=== PATIENT | male | born 1965 | race Caucasian/White ===

== ENCOUNTER → 2018-03-26 15:33 | Outpatient (CLI) | payer OTHER, SELFPAY ==
--- NOTE | 2018-03-26 | DI.MRI.S_ITS ---
PROCEDURE: MR LUMBAR SPINE WO CON INDICATIONS: SCIATICA TECHNIQUE: Noncontrast sagittal T1 spin echo and T2 fast echo, sagittal STIR, axial T1 and T2 fast spin echo through the lumbar spine. In cases with scoliosis, additional coronal T2 fast spin echo may be performed. COMPARISON: [facility], MR, L-SPINE W&WO CONTRAST, 09/16/2016, 7:51. [facility], MR, L-SPINE W&WO CONTRAST, 08/30/2014, 14:00. [facility], MR, L-SPINE WITHOUT CONTRAST, 07/26/2011, 16:09. FINDINGS: Image quality: Excellent. Alignment and Curvature: There is normal bony alignment. Bone Marrow: Marrow is of normal overall signal. No acute vertebral body compression fractures. Spinal Cord: Conus medullaris terminates at the L1 level. Visualized cord demonstrates normal signal and size. Paraspinous Soft Tissues: No paravertebral masses. T12-L1: The disc height is well-preserved. Loss of disc signal is seen at this level. A faintly seen annular fissure is present posteriorly, as on series 4 image 8. No significant disc bulge is seen. No significant neural foraminal or central canal narrowing are seen. L1-L2: Normal appearance. L2-L3: The disc height and disk signal are well-preserved. Mild to moderate disc bulge is seen. Mild to moderate facet hypertrophy is seen. There is mild bilateral neural foraminal narrowing seen. Minimal central canal narrowing is seen. These imaging findings are mildly progressed compared to the prior study. L3-L4: The disc height is well-preserved. Loss of disc signal is seen at this level. Moderate generalized disc bulge is seen. Mild facet joint hypertrophy is seen. There is mild right-sided and mild to moderate left-sided neural foraminal narrowing seen. Mild to moderate central canal narrowing is seen. These degenerative findings are mildly progressed compared to the prior. L4-L5: Moderate loss of disc height is seen. Loss of disc signal is seen. Moderate generalized disc bulge is seen. Moderate facet joint hypertrophy is seen. There is moderate left-sided and mild right-sided neural foraminal narrowing. Minimal central canal narrowing is seen. When comparison is made with the prior examination, these findings are similar. L5-S1: Mild loss of disc height is seen. Loss of disc signal is seen. Mild to moderate disc bulge is seen, which is eccentric to the right side. Mild facet joint hypertrophy is seen. [id number] bilateral neural foraminal narrowing is seen. When comparison is made with the prior examination, these findings are similar. IMPRESSION: Multiple levels of lumbar spine degenerative changes are seen, which are mildly progressed at L2-L3 and L3-L4 compared to 2017. Dictated by: Ulises Wolfe M.D. on 03/26/2018 at 15:15 Approved by: Ulises Wolfe M.D. on 03/26/2018 at 15:21
== END ==
PROVIDERS: PCP Anesthesiology; Visit Provider Family Medicine
DX: M51.16 Intervertebral disc disorders with radiculopathy, lumbar region (principal); M51.17 Intervertebral disc disorders with radiculopathy, lumbosacral region; M48.061 Spinal stenosis, lumbar region without neurogenic claudication; M48.07 Spinal stenosis, lumbosacral region
CPT/HCPCS: 72148

== ENCOUNTER → 2018-07-22 12:55 | Outpatient (CLI) | payer OTHER, SELFPAY ==
--- NOTE | 2018-07-22 | DI.MRI.S_ITS ---
PROCEDURE: MR HEAD/BRAIN WO CON INDICATIONS: HEADACHE TECHNIQUE: Noncontrast axial T1 spin echo, axial T2 fast spin echo, sagittal and axial FLAIR, coronal T2 fast spin echo, axial gradient echo, axial diffusion and ADC through the brain. COMPARISON: None. FINDINGS: Image quality: Excellent. CSF Spaces: Basal cisterns are patent. No extra-axial fluid collections. Ventricles are normal in size and shape. Brain: No intracranial masses or hemorrhage. Kendall/white matter interface is normal. Brainstem appears normal. Diffusion-weighted images demonstrate no acute ischemic insult. No chronic ischemic insults. Normal intravascular flow voids are present. Skull and face: Calvarium has normal marrow signal. Orbits appear normal. Sinuses: Mild ethmoid sinus the coastal thickening bilaterally. Sinuses and mastoids are otherwise clear. IMPRESSION: 1. No intracranial abnormality. No recent infarct. 2. Ethmoid sinus disease. Dictated by: Tabitha Mclain M.D. on 07/22/2018 at 13:59 Approved by: Tabitha Mclain M.D. on 07/22/2018 at 14:00
== END ==
PROVIDERS: PCP Family Medicine; Visit Provider Family Medicine
DX: R51 Headache (principal); J32.2 Chronic ethmoidal sinusitis
CPT/HCPCS: 70551

== ENCOUNTER → 2018-11-24 14:06 | Outpatient (CLI) | payer OTHER, SELFPAY ==
--- NOTE | 2018-11-24 | DI.MRI.S_ITS ---
PROCEDURE: MR CERVICAL SPINE WO CON INDICATIONS: Cervicalgia TECHNIQUE: Noncontrast sagittal T1 spin echo and T2 fast spin echo, sagittal STIR, foraminal oblique sagittal T2 fast spin echo, and axial gradient echo or T2 fast spin echo through the cervical spine. COMPARISON: None. FINDINGS: Image quality: Excellent. Alignment and Curvature: There is normal bony alignment. Bone Marrow: Marrow demonstrates normal overall signal. Spinal Cord: Visualized spinal cord has normal size and signal. No cerebellar tonsillar herniation. Paraspinous Soft Tissues: No paravertebral masses. Prevertebral soft tissues are normal in thickness. C2-C3: Normal appearance. C3-C4: Disc desiccation. Small central protrusion. Mild canal stenosis. No foraminal stenosis. C4-C5: Disc desiccation. Small central protrusion. Mild canal stenosis. No foraminal stenosis. C5-C6: Mild disc height loss and desiccation. Mild diffuse disc bulge. Mild bilateral facet and uncovertebral hypertrophy. Mild canal stenosis. Moderate bilateral foraminal stenosis. C6-C7: Mild disc desiccation. No significant canal, nor foraminal stenosis. C7-T1: Normal appearance. IMPRESSION: 1. Multilevel degenerative disc and facet disease, causing mild multilevel canal stenoses. 2. Multilevel foraminal stenoses, worst at C5-C6, where there are moderate foraminal stenoses bilaterally. Dictated by: Tabitha Mclain M.D. on 11/24/2018 at 15:02 Approved by: Tabitha Mclain M.D. on 11/24/2018 at 15:05
== END ==
PROVIDERS: PCP Family Medicine; Visit Provider Family Medicine
DX: M50.322 Other cervical disc degeneration at C5-C6 level (principal); M48.02 Spinal stenosis, cervical region
CPT/HCPCS: 72141

== ENCOUNTER → 2019-12-15 14:08 | Outpatient (CLI) | payer OTHER, SELFPAY ==
--- NOTE | 2019-12-15 | DI.MRI.S_ITS ---
PROCEDURE: MR KNEE RT WO CON INDICATIONS: Pain in unspecified knee TECHNIQUE: Noncontrast sagittal PD fast spin echo and T2 fast spin echo with fat saturation, sagittal 3-D FLASH with fat saturation; coronal T1 spin echo and PD fast spin echo with fat saturation, and axial PD fast spin echo with fat saturation through the knee. COMPARISON: [facility], MR, KNEE WITHOUT CONTRAST, 12/24/2016, 8:20. FINDINGS: Image quality: Excellent. Menisci: The medial and lateral menisci demonstrate normal morphology and internal signal. The meniscal root ligaments appear intact. Cruciate ligaments: The anterior and posterior cruciate ligaments appear intact. Medial structures: Very low-grade proximal MCL sprain is seen . The posterior oblique ligament, semimembranosus tendon insertions, oblique popliteal ligament, and meniscocapsular junction appear intact. Visualized portions of the pes anserinus tendons appear normal. No abnormal bursal fluid. Lateral structures: The lateral collateral ligament, long and short heads of the biceps femoris tendon appear intact. The popliteus tendon appears normal; the popliteofibular ligament appears intact. The posterosuperior and anteroinferior popliteomeniscal fascicles appear intact. The arcuate and fabellofibular ligaments appear intact, on either side of the lateral inferior geniculate artery. Iliotibial band appears normal. Anterior structures: The quadriceps and patellar tendons appear intact. Patellar alignment is normal. No femoral trochlear dysplasia or ventral trochlear prominence. No edema in the infrapatellar fat pad. Bones and cartilage: No bone marrow contusions or fractures. Mild tricompartmental osteoarthritis is seen more prominent in medial femoral tibial compartment. The cartilage of the medial and lateral femorotibial compartments appears normal in thickness. Low-grade chondromalacia patella involving medial and lateral facet of patella cartilage knee apex is seen. Joint space: There is small amount of joint fluid, no gross intra-articular loose body. No Awan's cyst. Normal appearing synovial plicae are incidentally noted. IMPRESSION: 1. Cruciate ligaments are intact. Very low-grade proximal MCL sprain. 2. No evidence of focal meniscal tear. 3. 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 Small amount of joint fluid. Dictated by: Herminio Rodarte M.D. on 12/15/2019 at 16:49 Approved by: Herminio Rodarte M.D. on 12/15/2019 at 16:53
== END ==
PROVIDERS: PCP Family Medicine; Referring Provider Family Medicine; Visit Provider Family Medicine
DX: M25.561 Pain in right knee (principal); M17.11 Unilateral primary osteoarthritis, right knee
CPT/HCPCS: 73721

== ENCOUNTER → 2023-05-03 10:41 | Outpatient (CLI) | payer OTHER, SELFPAY ==
--- NOTE | 2023-05-03 | DI.MRI.S_ITS ---
PROCEDURE: MR LUMBAR SPINE WO CON INDICATIONS: Chronic Low Back Pain TECHNIQUE: Noncontrast sagittal T1 spin echo and T2 fast echo, sagittal STIR, and T2 fast spin echo through the lumbar spine. In cases with scoliosis, additional coronal T2 fast spin echo may be performed. COMPARISON: [facility], MR, MR LUMBAR SPINE WO CON, 03/26/2018, 15:47. FINDINGS: Image quality: Excellent. Alignment and Curvature: There is normal bony alignment. Bone Marrow: Marrow is of normal overall signal. No acute vertebral body compression fractures. Spinal Cord: Conus medullaris terminates at the L1 level. Visualized cord demonstrates normal signal and size. Paraspinous Soft Tissues: No paravertebral masses. T12-L1: Normal appearance. L1-L2: Normal appearance. L2-3: Normal appearance. L3-4: Disc height is preserved. Circumferential disc bulge and hypertrophic facet joints results in mild central stenosis. Short high-intensity zone in the posterior annulus reflects annular fissure or tear. No foraminal stenosis. L4-5: Mild disc bulge hypertrophic facet joints results in mild central stenosis. Mild bilateral foraminal stenosis. No central stenosis L5-S1: Disc space narrowing and hypertrophic facet joints present without central stenosis. Mild to moderate bilateral foraminal stenosis IMPRESSION: Multilevel degenerative disc disease and arthropathy results in varying degrees of central and foraminal stenosis including mild to moderate bilateral foraminal stenosis L5-S1 Approved by: Mo Kiser M.D. on 05/05/2023 at 13:19
== END ==
DX: M51.36 Other intervertebral disc degeneration, lumbar region (principal); M47.816 Spondylosis without myelopathy or radiculopathy, lumbar region; M48.061 Spinal stenosis, lumbar region without neurogenic claudication; M47.817 Spondylosis without myelopathy or radiculopathy, lumbosacral region; M48.07 Spinal stenosis, lumbosacral region; M54.9 Dorsalgia, unspecified
CPT/HCPCS: 72148

== ENCOUNTER → 2024-12-07 11:38 | Outpatient (CLI) | payer OTHER, SELFPAY ==
--- NOTE | 2024-12-07 11:41 | DI.US.S_ITS ---
PROCEDURE: US SOFT TISSUE HEAD AND NECK INDICATIONS: LEFT NECK SWELLING TECHNIQUE: Real-time scanning was performed of the neck region of interest, with image documentation. COMPARISON: None. FINDINGS: Sonographic imaging of the soft tissue neck was performed. No cervical lymphadenopathy is seen. Both submandibular glands are normal and symmetric in appearance. IMPRESSION: Unremarkable exam. Dictated by: Lora Frausto M.D. on 12/08/2024 at 9:53 Approved by: Lora Frausto M.D. on 12/08/2024 at 9:53
--- NOTE | 2024-12-07 11:41 | DI.US.S_ITS ---
PROCEDURE: US ABDOMEN COMPLETE INDICATIONS: GENERALIZED ABDOMINAL PAIN TECHNIQUE: Real-time scanning was performed of the abdominal and retroperitoneal organs, with image documentation. COMPARISON: None. FINDINGS: Liver: Liver is normal in size and homogeneous in echotexture. Gallbladder: There is some reverberation artifact present. The gallbladder is otherwise anechoic with no evidence of stones. Biliary ducts: Intrahepatic bile ducts are non-dilated. Extrahepatic bile duct caliber measures 6.3 mm. Normal is 6-7 mm or less in diameter, or 10 mm or less post-cholecystectomy. Pancreas: Visualized portions of the pancreas are sonographically normal. Spleen: Spleen is normal in size and homogeneous in echotexture. Kidneys: Kidneys are normal in size and echotexture. Right kidney measures 11 cm long; left kidney measures 11 cm long. No hydronephrosis or nephrolithiasis. No solid masses. Aorta: Visualized aorta is normal in caliber at less than 3 cm. Iliacs: Proximal common iliac arteries are normal in caliber at less than 2.5 cm. IVC: Intrahepatic inferior vena cava is patent. Miscellaneous: No free abdominal fluid. IMPRESSION: Essentially unremarkable exam. Dictated by: Lora Frausto M.D. on 12/08/2024 at 9:54 Approved by: Lora Frausto M.D. on 12/08/2024 at 9:56
== END ==
PROVIDERS: PCP Family Medicine; Referring Provider Family Medicine; Visit Provider Family Medicine
DX: Z01.89 Encounter for other specified special examinations (principal); M79.89 Other specified soft tissue disorders
CPT/HCPCS: 76536; 76700